=== PATIENT | male | born 1980 | race Caucasian/White ===

== ENCOUNTER 2018-01-02 16:46 | Emergency (ER) | END 2018-01-02 19:37 | disposition left against medical advice (07) ==

== ENCOUNTER 2018-02-16 05:57 | Day surgery (SDC) | END 2018-02-16 12:15 | disposition home or self-care (01) ==

== ENCOUNTER 2018-03-14 14:18 | Emergency (ER) | END 2018-03-14 20:50 | disposition home or self-care (01) ==